=== PATIENT | male | born 1985 | race American Indian/Alaskan Native ===

== ENCOUNTER 2018-06-24 11:43 | Emergency (ER) | payer OTHER ==
[2018-06-24 12:40] LABS: Basophils % (Auto) 0.5 % (0.0-1.8); Eosinophils # (Auto) 0.1 K/mm3 (0.0-0.4); Eosinophils % (Auto) 2.2 % (0.0-4.3); Hematocrit 40.6 % (35.5-45.6); Hemoglobin 13.9 gm/dl (11.8-15.2); Lymphocytes # (Auto) 1.4 K/mm3 (1.2-5.4); Lymphocytes % (Auto) 32.7 % (13.4-35.0); Mean Corpuscular HGB Conc 34 % (32-34); Mean Corpuscular Volume 91 fl (84-94); Monocytes # (Auto) 0.6 K/mm3 (0.0-0.8); Monocytes % (Auto) 14.7 % (0.0-7.3); Platelet Count 240 K/mm3 (140-440); Red Blood Count 4.46 M/mm3 (3.65-5.03); Red Cell Distribution Width 14.2 % (13.2-15.2)
[2018-06-24 13:03] LABS: Creatine Kinase MB 4.2 ng/mL (0.0-4.0)
[2018-06-24 13:05] LABS: Alanine Aminotransferase 27 units/L (7-56); Albumin 4.3 g/dL (3.9-5); BUN/Creatinine Ratio 11; Blood Urea Nitrogen 9 mg/dL (9-20); Calcium 9.2 mg/dL (8.4-10.2); Hemolysis Index 3
[2018-06-24 13:11] LABS: Bacteria,Urine 3+ /HPF (Negative); Bilirubin,Urine NEG (Negative); Blood,Urine SM (Negative); Color,Urine Yellow (Yellow); Mucus,Urine 1+ /HPF; Protein,Urine <15 mg/dL mg/dL (Negative); Urobilinogen,Urine < 2.0 mg/dL (<2.0)
--- NOTE | 2018-06-24 13:15 | Emergency Department Report ---
ED General Adult HPI - General Chief complaint: Medical Clearance Stated complaint: BACK AND SHOULDER PAIN Time Seen by Provider: 06/24/18 12:06 Source: patient Mode of arrival: Ambulatory Limitations: No Limitations - History of Present Illness Initial comments: This is a 32 year old homeless man that was picked up at a hotel and apparently transported here for medical clearance I presume at police request. The patient stated that he needed medical clearance to go to reports. He has a history of schizophrenia. His medication allergies include all commonly prescribed intramuscular antipsychotic medications. The patient is not acutely hallucinat ing. He is not reporting any SI or HI. He states that he has pain of his left shoulder and his left tib-fib area of his leg. He cannot recall any injury. He has no explanation as to why his leg may be swollen. -: days(s) Location: left, upper extremity, lower extremity Radiation: non-radiation Quality: aching Consistency: intermittent Improves with: none Worsens with: none Associated Symptoms: denies other symptoms Treatments Prior to Arrival: none - Related Data Allergies Allergy/AdvReac Type Severity Reaction Status Date / Time chlorpromazine HCl AdvReac Unknown Verified 07/06/14 20:25 [From Thorazine] haloperidol [From Haldol] AdvReac Unknown Verified 06/24/18 11:58 olanzapine [From Zyprexa] AdvReac Unknown Verified 06/24/18 11:59 ziprasidone [From Geodon] AdvReac Unknown Verified 06/24/18 11:59 ED Review of Systems ROS: Stated complaint: BACK AND SHOULDER PAIN Other details as noted in HPI Constitutional: denies: chills, fever Eyes: denies: eye pain, eye discharge, vision change ENT: denies: ear pain, throat pain Respiratory: denies: cough, shortness of breath, wheezing Cardiovascular: denies: chest pain, palpitations Endocrine: no symptoms reported Gastrointestinal: denies: abdominal pain, nausea, diarrhea Genitourinary: denies: urgency, dysuria Musculoskeletal: as per HPI. denies: back pain, joint swelling, arthralgia Skin: denies: rash, lesions Neurological: denies: headache, weakness, paresthesias Psychiatric: denies: anxiety, depression Hematological/Lymphatic: denies: easy bleeding, easy bruising ED Past Medical Hx - Past Medical History Previous Medical History?: Yes Hx Psychiatric Treatment: Yes - Surgical History Past Surgical History?: No - Social History Smoking Status: Current Every Day Smoker Substance Use Type: None ED Physical Exam - General Limitations: No Limitations General appearance: alert, in no apparent distress - Head Head exam: Present: atraumatic, normocephalic - Eye Eye exam: Present: normal appearance, PERRL, EOMI. Absent: scleral icterus - ENT ENT exam: Present: mucous membranes moist - Neck Neck exam: Present: normal inspection. Absent: tenderness, meningismus - Respiratory Respiratory exam: Present: normal lung sounds bilaterally. Absent: respiratory distress - Cardiovascular Cardiovascular Exam: Present: regular rate, normal rhythm. Absent: systolic murmur, diastolic murmur, rubs, gallop - GI/Abdominal GI/Abdominal exam: Present: soft, normal bowel sounds. Absent: distended, tenderness, guarding, rebound, rigid - Rectal Rectal exam: Present: deferred - Extremities Exam Extremities exam: Present: other (full range of motion without tenderness or deformity of the left shoulder. The left distal calf is swollen and somewhat red. I can't exclude bony deformity either) - Back Exam Back exam: Present: normal inspection. Absent: CVA tenderness (R), CVA tenderness (L) - Neurological Exam Neurological exam: Present: alert, oriented X3, CN II-XII intact. Absent: motor sensory deficit - Psychiatric Psychiatric exam: Present: normal mood, flat affect - Skin Skin exam: Present: warm, dry, intact, normal color. Absent: rash ED Course Vital Signs 06/24/18 11:55 Temperature 99.6 F Pulse Rate 99 H Respiratory 16 Rate Blood Pressure 133/78 O2 Sat by Pulse 96 Oximetry - Reevaluation(s) Reevaluation #1: A chest x-rays and Doppler study were negative. He appears to have a contusion of his left lower extremity. Psychiatric evaluation was performed as he kept asking to go to [facility]. He was guarded with his history and just noted to refer somatic symptoms with me. However, the psychiatric certified income tax preparer and him to be complaining of auditory hallucinations. She is affecting his 70s of daily living. I'll place him on a 1013 for further mental health evaluation here. I will start him on Geodon. He is noncompliant with medication. 06/24/18 18:46 ED Medical Decision Making - Lab Data Result diagrams: 06/24/18 12:11 06/24/18 12:11 Laboratory Results - last 24 hr 06/24/18 06/24/18 06/24/18 12:11 12:11 12:11 WBC 4.3 L RBC 4.46 Hgb 13.9 Hct 40.6 MCV 91 MCH 31 MCHC 34 RDW 14.2 Plt Count 240 Lymph % (Auto) 32.7 Craig % (Auto) 14.7 H Eos % (Auto) 2.2 Baso % (Auto) 0.5 Lymph # 1.4 Craig # 0.6 Eos # 0.1 Baso # 0.0 Seg Neutrophils % 49.9 Seg Neutrophils # 2.1 Sodium 143 Potassium 4.1 Chloride 102.0 Carbon Dioxide 29 Anion Gap 16 BUN 9 Creatinine 0.8 Estimated GFR > 60 BUN/Creatinine Ratio 11 Glucose 91 Calcium 9.2 Total Bilirubin 0.30 AST 28 ALT 27 Alkaline Phosphatase 84 Total Creatine Kinase CK-MB (CK-2) CK-MB (CK-2) Rel Index Total Protein 7.4 Albumin 4.3 Albumin/Globulin Ratio 1.4 Urine Color Urine Turbidity Urine pH Ur Specific Comfrey Urine Protein Urine Glucose (UA) Urine Ketones Urine Blood Urine Nitrite Urine Bilirubin Urine Urobilinogen Ur Leukocyte Esterase Urine WBC (Auto) Urine RBC (Auto) Urine Bacteria (Auto) Urine Mucus Urine Opiates Screen Urine Methadone Screen Ur Barbiturates Screen Ur Phencyclidine Scrn Ur Amphetamines Screen U Benzodiazepines Scrn Urine Cocaine Screen U Marijuana (THC) Screen Drugs of Abuse Note Plasma/Serum Alcohol < 0.01 06/24/18 06/24/18 06/24/18 12:11 12:58 12:58 WBC RBC Hgb Hct MCV MCH MCHC RDW Plt Count Lymph % (Auto) Craig % (Auto) Eos % (Auto) Baso % (Auto) Lymph # Craig # Eos # Baso # Seg Neutrophils % Seg Neutrophils # Sodium Potassium Chloride Carbon Dioxide Anion Gap BUN Creatinine Estimated GFR BUN/Creatinine Ratio Glucose Calcium Total Bilirubin AST ALT Alkaline Phosphatase Total Creatine Kinase 446 H CK-MB (CK-2) 4.2 H CK-MB (CK-2) Rel Index 0.9 Total Protein Albumin Albumin/Globulin Ratio Urine Color Yellow Urine Turbidity Cloudy Urine pH 7.0 Ur Specific Comfrey 1.015 Urine Protein <15 mg/dl Urine Glucose (UA) Neg Urine Ketones Neg Urine Blood Sm Urine Nitrite Neg Urine Bilirubin Neg Urine Urobilinogen < 2.0 Ur Leukocyte Esterase Neg Urine WBC (Auto) 2.0 Urine RBC (Auto) 14.0 Urine Bacteria (Auto) 3+ Urine Mucus 1+ Urine Opiates Screen Presumptive negative Urine Methadone Screen Presumptive negative Ur Barbiturates Screen Presumptive negative Ur Phencyclidine Scrn Presumptive negative Ur Amphetamines Screen Presumptive negative U Benzodiazepines Scrn Presumptive negative Urine Cocaine Screen Presumptive negative U Marijuana (THC) Screen Presumptive positive Drugs of Abuse Note Disclamer Plasma/Serum Alcohol Critical care attestation.: If time is entered above; I have spent that time in minutes in the direct care of this critically ill patient, excluding procedure time. ED Disposition Clinical Impression: Acute psychosis Contusion of left leg Qualifiers: Encounter type: initial encounter Qualified Code(s): S80.12XA - Contusion of left lower leg, initial encounter Disposition: DC/TX-65 PSY HOSP/PSY UNIT Is pt being admited?: No Does the pt Need Aspirin: No Condition: Stable Time of Disposition: 18:50
[2018-06-24 13:16] LABS: Amphetamine Screen,Urine PRESUMPTIVE NEGATIVE; Benzodiazepines Screen,Urine PRESUMPTIVE NEGATIVE; Cocaine Screen,Urine PRESUMPTIVE NEGATIVE; Methadone Screen,Urine PRESUMPTIVE NEGATIVE; Opiate Screen,Urine PRESUMPTIVE NEGATIVE
[2018-06-24 13:35] LABS: Cannabinoid Screen,Urine PRESUMPTIVE POSITIVE
--- NOTE | 2018-06-24 15:31 | XRay Report ---
LEFT SHOULDER RADIOGRAPHS INDICATION: Pain, injury. COMPARISON: None similar. FINDINGS: Frontal and Y views of the left shoulder, 3 projections demonstrate normal humeral head contour, well positioned against the glenoid. Normal acromioclavicular joint. Preserved scapular contour. Normal visualized soft tissues, left ribs and lung. CONCLUSION: No acute left shoulder radiographic abnormality, as described. Thank you for the opportunity to participate in this patient's care.
--- NOTE | 2018-06-24 15:32 | XRay Report ---
LEFT TIBIA AND FIBULA RADIOGRAPHS INDICATION: Pain, swelling. COMPARISON: None similar. FINDINGS: AP and lateral left tibia and fibula radiographs demonstrate intact bones. Unremarkable soft tissues. Included knee and ankle articulations appear unremarkable as well. CONCLUSION: Normal exam. Thank you for the opportunity to participate in this patient's care.
--- NOTE | 2018-06-24 16:53 | Vascular Lab Report ---
FINAL REPORT EXAM: VL VENOUS DUPLEX LE LT HISTORY: pain swelling COMPARISON: None. TECHNIQUE: Duplex Doppler ultrasound of the left lower extremity was performed. FINDINGS: The veins of the left lower extremity are patent, compressible, and demonstrate normal waveforms and augmentation. IMPRESSION: No evidence of deep venous thrombosis of the left lower extremity.
[2018-06-24] MEDS ORDERED: MILK OF MAGNESIA PO PRN (18:52)
[2018-06-24] MEDS ORDERED: ALUM-MAG HYDROX-SIMETH 200-200-20MG/5ML PO PRN (18:52)
[2018-06-25] MEDS: TYLENOL PO PRN ×2 (08:11→20:30)
[2018-06-25 15:07] LABS: Alanine Aminotransferase 27 units/L (7-56)
--- NOTE | 2018-06-25 15:33 | Consultation ---
History of Present Illness - Reason for Consult Consult date: 06/25/18 Reason for consult: Mental Health Evaluation Requesting physician: HA MARAVILLA - Chief Complaint Chief complaint: "I have a broken leg" - History of Present Psychiatric Illness 32 year old AA male presented the ER for lower/upper extremity pain. Psychiatry was consulted to see the patient because of acute psychosis. Today the patient is calm, but tangent during the assessment. He stated that he want to go to [place], but felt like his left leg is "broke." He stated that he have a injured shoulder as well. Imaging confirmed that neither the patient's leg nor his shoulder is fx or injured. The patient is adamant he isn't "right" right at this time. He was asked several questions about his mental health, but most of his answers were vague. He did state that he take Abilify and Depakote. He stated that he haven't taken his medications in several months. He stated that he have been experiences voices for days, but cannot state what the voices are telling him. He would not confirm or deny SI's when asked. He acknowledged erratic sleep, but denies a poor appetite. He denies alcohol consumption (etoh). Medications and Allergies Allergies Allergy/AdvReac Type Severity Reaction Status Date / Time chlorpromazine HCl AdvReac Unknown Verified 07/06/14 20:25 [From Thorazine] haloperidol [From Haldol] AdvReac Unknown Verified 06/24/18 11:58 olanzapine [From Zyprexa] AdvReac Unknown Verified 06/24/18 11:59 ziprasidone [From Geodon] AdvReac Unknown Verified 06/24/18 11:59 Active Meds: Active Medications Acetaminophen (Tylenol) 650 mg PO Q4HR PRN PRN Reason: Pain MILD(1-3)/Fever >100.5/COLLAZO Last Admin: 06/25/18 08:11 Dose: 650 mg Documented by: Al Hydrox/Mg Hydrox/Simethicone (Alum-Mag Hydrox-Simeth [phone]/5ml) 30 ml PO Q4HR PRN PRN Reason: Indigestion Magnesium Hydroxide (Milk Of Magnesia) 30 ml PO Q12HR PRN PRN Reason: Constipation Past psychiatric history - Past Medical History Past Medical History: No medical history Past Surgical History: No surgical history - past Psychiatric treatment and history psychiatric treatment history: Several inpatient psy settings. Denies a fam psy hx. - Social History Social history: other (Homeless) Mental Status Exam - Vital signs Last Vital Signs Temp 98.2 F 06/25/18 14:14 Pulse 69 06/25/18 14:14 Resp 16 06/25/18 14:14 BP 125/59 06/25/18 14:14 Pulse Ox 98 06/25/18 14:14 - Exam Narrative exam: MSE: Appearance: in a hospital gown, disheveled Behavior: regular eye contact Speech: regular rate and tone Mood: irritable Affect: congruent to mood Thought Process: tangential Thought Content: denies HI's and VH's, delusional Motor Activity: ambulatory Cognition: A/O x3 Insight: poor Judgment: poor Results Result Diagrams: 06/24/18 12:11 06/24/18 12:11 Abnormal lab results 06/25/18 Range/Units 14:11 Valproic Acid < 2.8 L (50-100) ug/mL All other labs normal. Assessment and Plan Assessment and plan: Impression: Unspecified Mood DO with psy features. Cannabis Use DO. Today the patient is calm, but tangent during the assessment. DDx: Bipolar DO with psychosis, Schizoaffective DO, R/O Substance Induced Mood/Psychotic DO Recommendation/Plan: Continue 1013 and start Abilify 5 mg PO daily for mood/psychosis and Depakote 500 mg PO BID for mood. Discussed possible metabolic side effects of Abilify with the patient. Dispo: The patient was referred to inpatient psy services. Will staff with Dr Feldman.
[2018-06-25] MEDS: ABILIFY PO SCH (17:38)
[2018-06-26] MEDS: ABILIFY PO SCH (10:48)
[2018-06-26] MEDS: TYLENOL PO PRN (10:48)
--- NOTE | 2018-06-26 17:51 | Progress Note ---
Subjective - Reason for Consult Consult date: 06/26/18 Reason for consult: follow up - Chief Complaint Chief complaint: "I want to rest." Unable to assess Mental status . He refused and said he would rather rest. Impression: Unspecified Mood DO with psy features. Cannabis Use DO. He does not want to be interviewed today. DDx: Bipolar DO with psychosis, Schizoaffective DO, R/O Substance Induced Mood/Psychotic DO Recommendation/Plan: Continue 1013 and start Abilify 5 mg PO daily for mood/psychosis and Depakote 500 mg PO BID for mood. Discussed possible metabolic side effects of Abilify with the patient. Dispo: The patient was referred to inpatient psy services. Staffed with Dr. Balwinder Hong Mental Status Exam - Vital signs Last Vital Signs Temp 98.5 F 06/26/18 14:00 Pulse 18 L 06/26/18 14:00 Resp 18 06/26/18 14:00 BP 104/56 06/26/18 14:00 Pulse Ox 96 06/26/18 14:00
[2018-06-27] MEDS: ABILIFY PO SCH (09:44)
[2018-06-27] MEDS: TYLENOL PO PRN ×2 (12:45→20:48)
--- NOTE | 2018-06-27 18:34 | Progress Note ---
Subjective - Reason for Consult Consult date: 06/27/18 Reason for consult: follow up - Chief Complaint Chief complaint: "Nothing's changed." Unable to assess Mental status . He refused to speak. Impression: Unspecified Mood DO with psy features. Cannabis Use DO. He does not want to be interviewed today. DDx: Bipolar DO with psychosis, Schizoaffective DO, R/O Substance Induced Mood/Psychotic DO Recommendation/Plan: Continue 1013 and start Abilify 5 mg PO daily for mood/psychosis and Depakote 500 mg PO BID for mood. Dispo: The patient was referred to inpatient psy services. Staffed with Dr. Balwinder Hong Mental Status Exam - Vital signs Last Vital Signs Temp 98.6 F 06/27/18 04:00 Pulse 67 06/27/18 04:00 Resp 18 06/27/18 04:00 BP 96/56 06/27/18 04:00 Pulse Ox 97 06/27/18 04:00
[2018-06-28] MEDS: ABILIFY PO SCH (09:38)
--- NOTE | 2018-06-28 12:44 | Progress Note ---
Subjective - Reason for Consult Consult date: 06/28/18 Reason for consult: Psychiatry Follow-up - Chief Complaint Chief complaint: ""I still feel like I'm hurt" 32 year old AA male presented the ER for lower/upper extremity pain. Psychiatry was consulted to see the patient because of acute psychosis. Today the patient is calm, but still delusional during the assessment. He is adamant that he has a lower extremity/shoulder injury. He stated, "I am seriously hurt." He stated that he is hearing voices, but will not state what the voices are saying when asked. He denies SI/HI's and VH's. No indications of side effects of his medications. Mental Status Exam - Vital signs Last Vital Signs Temp 97.4 F L 06/28/18 07:59 Pulse 89 06/28/18 07:59 Resp 18 06/28/18 07:59 BP 117/71 06/28/18 07:59 Pulse Ox 96 06/28/18 07:59 - Exam Narrative exam: MSE: Appearance: in a hospital gown, disheveled Behavior: regular eye contact Speech: regular rate and tone Mood: "okay" Affect: congruent to mood Thought Process: circumstantial Thought Content: denies SI/HI's and VH's, delusional Motor Activity: ambulatory Cognition: A/O x3 Insight: poor Judgment: poor Assessment and Plan Impression: Unspecified Mood DO with psy features. Cannabis Use DO. Today the patient is calm, but still delusional during the assessment. DDx: Bipolar DO with psychosis, Schizoaffective DO, R/O Substance Induced Mood/Psychotic DO Recommendation/Plan: Continue 1013 and increase Abilify to 10 mg PO daily for mood/psychosis and Depakote 500 mg PO BID for mood. Discussed possible metabolic side effects of Abilify with the patient. Dispo: The patient was referred to inpatient psy services. Will staff with Dr Feldman.
[2018-06-29] MEDS: TYLENOL PO PRN ×2 (11:37→22:20)
[2018-06-29] MEDS: ABILIFY PO SCH (11:37)
--- NOTE | 2018-06-29 12:44 | Progress Note ---
Subjective - Reason for Consult Consult date: 06/29/18 Reason for consult: Psychiatry Follow-up - Chief Complaint Chief complaint: ""I see and spaceships" 32 year old AA male presented the ER for lower/upper extremity pain. Psychiatry was consulted to see the patient because of acute psychosis. Today the patient is calm, but still delusional during the assessment. He stated that he see and hear spaceships at this time. He stated that it's hard to believe "what is reality or fake." He paused several times throughout the interview, possibly responding to some type of stimuli. he denies SI/HI's and VH's. No indications of side effects of his medications. Mental Status Exam - Vital signs Last Vital Signs Temp 98.3 F 06/29/18 07:15 Pulse 77 06/29/18 07:15 Resp 16 06/29/18 11:37 BP 118/64 06/29/18 07:15 Pulse Ox 97 06/29/18 07:15 - Exam Narrative exam: MSE: Appearance: in a hospital gown, disheveled Behavior: regular eye contact Speech: regular rate and tone Mood: "okay" Affect: congruent to mood Thought Process: tangential Thought Content: denies SI/HI's and VH's, delusional Motor Activity: ambulatory Cognition: A/O x3 Insight: poor Judgment: poor Assessment and Plan Impression: Unspecified Mood DO with psy features. Cannabis Use DO. Today the patient is calm, but still delusional during the assessment. The patient is experiencing perceptual disturbances. DDx: Bipolar DO with psychosis, Schizoaffective DO, R/O Substance Induced M ood/Psychotic DO Recommendation/Plan: Continue 1013 and iAbilify to 10 mg PO daily for mood/psychosis and Depakote 500 mg PO BID for mood. Discussed possible metabolic side effects of Abilify with the patient. Dispo: The patient was referred to inpatient psy services. Will staff with Dr Napoleon Hong.
[2018-06-30] MEDS: ABILIFY PO SCH (11:00)
--- NOTE | 2018-06-30 14:04 | Progress Note ---
Subjective - Reason for Consult Consult date: 06/30/18 Reason for consult: Psychiatric Follow-up Evaluation - Chief Complaint Chief complaint: "Alot better. I'm hearing voices" Patient is a 32 year old AA male presented the ER for lower/upper extremity pa in. Patient is seen in the emergency room for a psychiatric follow-up evaluation. Today the patient is calm, but still delusional during the assessment. He continues to hear and see spaceships. Patient is internally preoccupied. He states, " there is no one thing they say. It's different things. Both male and female voices." Patient speech is hesitant/delayed. He paused several times throughout the interview, possibly responding to some type of stimuli. He denies SI/HI's. He endorses A/VH's and paranoid delusions. He reports appropriate sleep and appetite. No indications of side effects of his medications. Mental Status Exam - Vital signs Last Vital Signs Temp 97.8 F 06/30/18 07:53 Pulse 71 06/30/18 07:53 Resp 18 06/30/18 07:53 BP 133/84 06/30/18 07:53 Pulse Ox 97 06/30/18 07:53 - Exam Narrative exam: Mental Status Exam Appearance: in a hospital gown, disheveled Behavior: intermittent eye contact Speech: regular rate and tone Mood: "alot" Affect: congruent to mood Thought Process: tangential Thought Content: denies SI/HI's . + A/VH's and delusions Motor Activity: ambulatory Cognition: A/O x3 Insight: poor Judgment: poor Assessment and Plan Impression: Unspecified Mood DO with psy features. Cannabis Use DO. Today the patient is calm, but still delusional during the assessment. The patient is experiencing perceptual disturbances. DDx: Bipolar DO with psychosis, Schizoaffective DO, R/O Substance Induced Mood/Psychotic DO Recommendation/Plan: 1. Continue 1013. 2. Increase Abilify to 15 mg PO daily for mood/psychosis and Depakote 500 mg PO BID for mood. Discussed possible metabolic side effects of Abilify with the patient. 3. VPA was ordered. 3. Will continue to monitor psychosis, mood, sleep, appetite, and compliance. Disposition: The patient was referred to inpatient psychiatric services. Will staff with Dr. Efrain Hong.
[2018-06-30] MEDS ORDERED: ABILIFY PO SCH (17:51)
[2018-06-30] MEDS ORDERED: HABITROL TD SCH (19:00)
[2018-06-30] MEDS ORDERED: HABITROL TD ONE (20:15)
--- NOTE | 2018-07-01 08:06 | Progress Note ---
Subjective - Reason for Consult Consult date: 07/01/18 Reason for consult: Psychiatry Follow-up - Chief Complaint Chief complaint: "The voices are making me nervous" Patient is a 32 year old AA male presented the ER for lower/upper extremity pain. Patient is seen in the emergency room for a psychiatric follow-up evaluation. Today the patient is calm, but still delusional during the assessment. He continues to hear and see spaceships when asked. He stated, "The voices are making me nervous." He had to be redirected several times to keep him on topic. He denies SI/HI's. No indications of side effects of his medications. Mental Status Exam - Vital signs Last Vital Signs Temp 98.0 F 07/01/18 04:22 Pulse 70 07/01/18 04:22 Resp 16 07/01/18 04:22 BP 114/63 07/01/18 04:22 Pulse Ox 98 07/01/18 04:22 - Exam Narrative exam: MSE: Appearance: in a hospital gown, disheveled Behavior: regular eye contact Speech: regular rate and tone Mood: preoccupied Affect: congruent to mood Thought Process: disorganized Thought Content: denies SI/HI's, delusional, possible paranoia Motor Activity: ambulatory Cognition: A/O x3 Insight: poor Judgment: poor Assessment and Plan Impression: Unspecified Mood DO with psy features. Cannabis Use DO. Today the patient is calm, but still delusional during the assessment. The patient is experiencing perceptual disturbances. DDx: Bipolar DO with psychosis, Schizoaffective DO, R/O Substance Induced Mood/Psychotic DO Recommendation/Plan: The patient's 1013 was extended and continue Abilify 15 mg PO daily for mood/psychosis and Depakote 500 mg PO BID for mood. Discussed possible metabolic side effects of Abilify with the patient. Dispo: The patient was accepted at [facility] for inpatient psy services pending transport time. Will staff with Dr Feldman.
[2018-07-01 10:00] VITALS: BP 120/81
== END 2018-07-01 10:05 ==
LOC: EEVIPCON 11:43 → ED 11:43
DX: S80.12XA Contusion of left lower leg, initial encounter (principal); F23 Brief psychotic disorder; F17.200 Nicotine dependence, unspecified, uncomplicated; Z88.8 Allergy status to other drugs, medicaments and biological substances; X58.XXXA Exposure to other specified factors, initial encounter; Y93.89 Activity, other specified; Y92.89 Other specified places as the place of occurrence of the external cause; Y99.8 Other external cause status
CPT/HCPCS: 36415; 73030; 73590; 80053; 80164; 80307; 81001; 82150; 82550; 82553; 83690; 84075; 84450; 84460; 85025; 93971; 99285; G0480; 80320